=== PATIENT | male | born 1990 | race Caucasian/White ===

== ENCOUNTER 2024-06-14 18:55 | Observation (INO) | payer OTHER, SELFPAY ==
[2024-06-14 19:02] VITALS: BP 160/90; PULSE 108; TEMP 37.4; O2SAT 95; BMI 43.7
--- NOTE | 2024-06-14 19:09 | US_ITS ---
[facility] [place] [id number] Patient Name: ROSE ACOSTA MRN: [id number] date: 1990 Sex: M Assigned Patient Location: ER Current Patient Location: ED.MAIN Accession/Order Number: [id number] Exam Date: 06/14/2024 19:40 Report Date: 06/14/2024 22:15 At the request of: JAY COMER Procedure: US venous doppler LE BI US venous doppler LE BI, 06/14/2024 6:40 PM CDT: History: DVT. Comparison: None. Technique: Grayscale, color Doppler, and spectral Doppler imaging of the deep veins of the bilateral lower extremities were performed. Findings: The deep veins of the bilateral lower extremities demonstrate normal compression, Spectral flow, and color Doppler signal. There is no evidence of deep vein thrombosis. US/US venous doppler LE BI Impression: No evidence of deep vein thrombosis within either lower extremity. Electronically authenticated by: KWASI GLASGOW Date: 06/14/2024 22:15
--- NOTE | 2024-06-14 20:51 | ED_ITS ---
HPI - Extremity Problem General Chief complaint: Extremity Problem, Nontraumatic Stated complaint: Lower Extremity Swelling Time Seen by Provider: 06/14/24 19:58 Source: patient Mode of arrival: walk-in Limitations: no limitations History of Present Illness HPI Narrative: This 33-year-old male presents for evaluation of bilateral lower extremity swelling for the past month with redness mostly in the left lower extremity for the past 8 days. He was seen at urgent care and put on Keflex for what was thought to be cellulitis. The patient has pink skin in general he states that is his usual skin color. He thought a month ago that he had a heat rash. He had recently returned to work and wears boots and heavy pants and thought that he was chafing from the pants and the sweat causing the heat rash. The heat rash has not resolved and has become worse on the anterior aspect of the left lower leg and he recently started having swelling. He also has a small healing laceration to the medial posterior lower leg. He is morbidly obese. He denies any chest pain or shortness of breath. He denies a history of diabetes but states there is a family history of diabetes. He completed a round of Keflex without clinical improvement in his symptoms. Related Data Home Medications ?Medication ?Instructions ?Recorded ?Confirmed No Known Home Medications 06/14/24 06/14/24 Allergies Allergy/AdvReac Type Severity Reaction Status Date / Time No Known Drug Allergies Allergy Verified 06/14/24 19:07 Review of Systems ROS Status of ROS 10 or more systems reviewed and unremark able except as noted in history and below [facility] Medical History (Updated 06/15/24 @ 04:43 by Yana Forde MD) Cellulitis and abscess of left leg ?L03.116 - Cellulitis of left lower limb (ICD-10) ?L02.416 - Cutaneous abscess of left lower limb (ICD-10) COVID ?U07.1 - COVID-19 (ICD-10) Social History Gender Identity: male Exam Narrative Exam Narrative: Vital signs and Nursing Notes reviewed: Pt has a low grade fever at 99.4, he is tachycardic with pulse of 108bpm and BP is elevated at 160/90, he is not hypoxic with pulse ox of 95% on RA General: Awake, alert, oriented, no acute distress, lying comfortably on the stretcher HEENT: Normocephalic atraumatic, mucous membranes are moist and pink, eyes are clear, normal conjunctiva, vision is grossly intact, posterior pharynx is normal in appearance. Chest: Lungs are clear to auscultation with good air entry, there is no wheezing rhonchi or rales appreciated no accessory muscle use, patient is speaking in complete sentences-no chest wall tenderness to palpation CVS: Regular rate and rhythm S1-S2, no murmurs rubs or gallops, pulses are brisk and equal bilaterally Extremities: Moving all extremities, no lower extremity tenderness or swelling noted, negative Homans' sign, pulses are brisk and equal bilaterally Skin: Erythematous appearance of all skin surfaces. LLE is increasingly erythematous with an area of tender erythema, almost petechial on the entire lower left leg including the anterior and posterior leg, there is a small healing laceration on the medial aspect of the left lower leg, no drainage appreciated there is 2+ pitting edema to both lower extremities, L>R. Pulses are brisk and equal bilaterally Neuro: No focal deficits Constitutional Vital Signs, click to edit/add: Last Vital Signs Temp 97.6 F 06/15/24 03:19 Pulse 87 06/15/24 03:19 Resp 18 06/15/24 03:19 BP 111/69 06/15/24 03:19 Pulse Ox 94 L 06/15/24 03:19 O2 Del Method Room Air 06/15/24 03:19 Course Vital Signs Vital signs: Vital Signs Temperature 99.4 F 06/14/24 19:02 Pulse Rate 108 H 06/14/24 19:02 Respiratory Rate 18 06/14/24 19:02 Blood Pressure 160/90 H 06/14/24 19:02 Pulse Oximetry 95 06/14/24 19:02 Oxygen Delivery Method Room Air 06/14/24 19:02 Temperature 97.6 F 06/15/24 03:19 Pulse Rate 87 06/15/24 03:19 Respiratory Rate 18 06/15/24 03:19 Blood Pressure 111/69 06/15/24 03:19 Pulse Oximetry 94 L 06/15/24 03:19 Oxygen Delivery Method Room Air 06/15/24 03:19 MDM - Extremity (Nontraumatic) MDM Narrative Medical decision making narrative: The [address] [address] Ultrasound Report Signed Patient: ROSE ACOSTA MR#: [id number] : 1990 Acct:[id number] Age/Sex: 33 / M ADM Date: 06/14/24 Loc: ER Attending Dr: Ordering Physician: Jay Comer Date of Service: 06/14/24 Procedure(s): US venous doppler LE BI Accession Number(s): [id number] cc: Jay Comer; Physician,Non-Staff M.D.~ [facility] [place] [id number] Patient Name: ROSE ACOSTA MRN: [id number] date: 1990 Sex: M Assigned Patient Location: ER Current Patient Location: ED.MAIN Accession/Order Number: [id number] Exam Date: 06/14/2024 19:40 Report Date: 06/14/2024 22:15 At the request of: JAY COMER Procedure: US venous doppler LE BI US venous doppler LE BI, 06/14/2024 6:40 PM CDT: History: DVT. Comparison: None. Technique: Grayscale, color Doppler, and spectral Doppler imaging of the deep veins of the bilateral lower extremities were performed. Findings: The deep veins of the bilateral lower extremities demonstrate normal compression, Spectral flow, and color Doppler signal. There is no evidence of deep vein thrombosis. US/US venous doppler LE BI Impression: No evidence of deep vein thrombosis within either lower extremity. Electronically authenticated by: KWASI GLASGOW Date: 06/14/2024 22:15 This 33-year-old male who is not diabetic but is morbidly obese presents for evaluation of redness and swelling to both lower extremities, left greater than right. The patient states that he sweats a lot at work and his legs chafe. He was treated for cellulitis with Keflex but the symptoms did not resolve and he developed increasing swelling of the legs. He has not had a fever. He is not diabetic. He has circumferential erythema of the left lower extremity with 2+ pitting edema. He has edema with less redness of the right lower extremity. Bilateral duplex ultrasounds were negative for DVT. He has a normal white count and hemoglobin. Electrolytes are normal. BUN and creatinine are normal. He does have markedly elevated inflammatory markers including CRP and sed rate. He was medicated in the emergency department with IV Unasyn. In light of the fact that this is an outpatient failure for cellulitis he will be admitted. The case was discussed with the hospitalist and the patient is accepted for admissi on. Lab Data Labs: Lab Results 06/14/24 Range/Units 21:10 WBC 7.8 (4.0-11.0) 10^3/uL RBC 5.14 (4.70-6.10) 10^6/uL Hgb 15.5 (14.0-18.0) g/dL Hct 46.5 (42.0-54.0) % MCV 90.5 (80.0-94.0) fL MCH 30.2 (25.9-34.0) pg MCHC 33.3 (29.9-35.2) g/dL RDW 12.7 (11.0-15.0) % Plt Count 344 (150-450) 10^3/uL MPV 9.6 (9.5-13.5) fL Neut % (Auto) 57.0 (43.0-75.0) % Lymph % (Auto) 29.7 (20.5-60.0) % Geary % (Auto) 8.1 (1.7-12.0) % Eos % (Auto) 4.2 (0.9-7.0) % Baso % (Auto) 0.5 (0.2-2.0) % Neut # (Auto) 4.4 (1.4-6.5) 10^3/uL Lymph # (Auto) 2.3 (1.2-3.8) 10^3/uL Geary # (Auto) 0.6 (0.3-0.8) 10^3/uL Eos # (Auto) 0.3 (0.0-0.7) 10^3/uL Baso # (Auto) 0.0 (0.0-0.1) 10^3/uL Abs Immat Gran (auto) 0.04 H (0.00-0.03) 10^3/uL Imm/Tot Granulo (auto) 0.5 (0.0-0.5) % ESR 68 H (<=15) mm/hr Sodium 139 (136-145) mmol/L Potassium 3.6 (3.5-5.1) mmol/L Chloride 101 (98-107) mmol/L Carbon Dioxide 30.3 (21.0-32.0) mmol/L Anion Gap 11.3 BUN 16.0 (7.0-18.0) mg/dL Creatinine 1.14 (0.70-1.30) mg/dL Est GFR ( Amer) >60 (>=60) Est GFR (Non-Af Amer) >60 (>=60) BUN/Creatinine Ratio 14.0 Glucose 106 (74-106) mg/dL Lactate 1.3 (0.4-2.0) mmol/L Calcium 9.1 (8.5-10.1) mg/dL C-Reactive Protein 0.95 H (<=0.50) mg/dL Discharge Plan Discharge Chief Complaint: Extremity Problem, Nontraumatic Clinical Impression: Cellulitis of left lower leg Patient Disposition: Admitted as Observation Time of Disposition Decision: 00:05 Condition: Good Discharge Date/Time: 06/15/24 00:05
[2024-06-14] MEDS: AMPICILLIN SODIUM/SULBACTAM NA 3 GM in 0.9 % SODIUM CHLORIDE 100 ML IV (21:16)
[2024-06-14 21:38] LABS: Basophils Percent Auto 0.5 % (0.2-2.0); Eosinophils Absolute Auto 0.3 10^3/uL (0.0-0.7); Eosinophils Percent Auto 4.2 % (0.9-7.0); Hematocrit 46.5 % (42.0-54.0); Hemoglobin 15.5 g/dL (14.0-18.0); Immature Granulocytes Abs Auto 0.04 10^3/uL (0.00-0.03); Immature Granulocytes Pct Auto 0.5 % (0.0-0.5); Lymphocytes Absolute Auto 2.3 10^3/uL (1.2-3.8); Lymphocytes Percent Auto 29.7 % (20.5-60.0); Mean Corpuscular HGB Conc 33.3 g/dL (29.9-35.2); Mean Corpuscular Hemoglobin 30.2 pg (25.9-34.0); Mean Corpuscular Volume 90.5 fL (80.0-94.0); Mean Platelet Volume 9.6 fL (9.5-13.5); Monocytes Absolute Auto 0.6 10^3/uL (0.3-0.8); Monocytes Percent Auto 8.1 % (1.7-12.0); Neutrophils Absolute Auto 4.4 10^3/uL (1.4-6.5); Platelet Count 344 10^3/uL (150-450); Red Blood Count 5.14 10^6/uL (4.70-6.10); Red Cell Distribution Width 12.7 % (11.0-15.0); White Blood Count 7.8 10^3/uL (4.0-11.0)
[2024-06-14 21:45] LABS: Erythrocyte Sedimentation Rate 68 mm/hr (<=15)
[2024-06-14 21:52] LABS: Anion Gap 11.3; C Reactive Protein 0.95 mg/dL (<=0.50); Calcium 9.1 mg/dL (8.5-10.1); Carbon Dioxide 30.3 mmol/L (21.0-32.0); Chloride 101 mmol/L (98-107); Estimated GFR (African America >60 (>=60); Estimated GFR (Non-African Ame >60 (>=60); Glucose 106 mg/dL (74-106); Potassium 3.6 mmol/L (3.5-5.1); Sodium 139 mmol/L (136-145)
[2024-06-14 21:59] LABS: Lactate/Lactic Acid 1.3 mmol/L (0.4-2.0)
[2024-06-14 22:48] VITALS: BP 127/81; PULSE 79; TEMP 36.8; O2SAT 92
[2024-06-14] MEDS: FUROSEMIDE 20 MG/2 ML VIAL IVP (23:01)
[2024-06-14 23:04] VITALS: BP 153/99; PULSE 73; O2SAT 97
[2024-06-15 00:23] VITALS: BP 127/81; PULSE 75; TEMP 36.7; O2SAT 92; BMI 43.8
[2024-06-15] MEDS: AMPICILLIN SODIUM/SULBACTAM NA 3 GM in 0.9 % SODIUM CHLORIDE 100 ML IV ×2 (03:14→09:24)
[2024-06-15 03:19] VITALS: BP 111/69; PULSE 87; TEMP 36.4; O2SAT 94
[2024-06-15 07:18] LABS: Basophils Percent Auto 0.6 % (0.2-2.0); Eosinophils Absolute Auto 0.3 10^3/uL (0.0-0.7); Eosinophils Percent Auto 4.5 % (0.9-7.0); Hemoglobin 15.8 g/dL (14.0-18.0); Immature Granulocytes Abs Auto 0.03 10^3/uL (0.00-0.03); Immature Granulocytes Pct Auto 0.5 % (0.0-0.5); Lymphocytes Absolute Auto 1.7 10^3/uL (1.2-3.8); Lymphocytes Percent Auto 25.9 % (20.5-60.0); Mean Corpuscular HGB Conc 32.2 g/dL (29.9-35.2); Mean Corpuscular Hemoglobin 29.9 pg (25.9-34.0); Mean Corpuscular Volume 92.6 fL (80.0-94.0); Mean Platelet Volume 9.1 fL (9.5-13.5); Monocytes Absolute Auto 0.7 10^3/uL (0.3-0.8); Neutrophils Absolute Auto 3.8 10^3/uL (1.4-6.5); Neutrophils Percent Auto 58.5 % (43.0-75.0); Platelet Count 327 10^3/uL (150-450); Red Blood Count 5.29 10^6/uL (4.70-6.10); Red Cell Distribution Width 12.8 % (11.0-15.0); White Blood Count 6.5 10^3/uL (4.0-11.0)
[2024-06-15 07:36] LABS: Alanine Aminotransferase 63 U/L (16-63); Albumin Level 3.9 g/dL (3.4-5.0); Alkaline Phosphatase 84 U/L (46-116); Anion Gap 11.1; Aspartate Amino Transferase 34 U/L (15-37); BUN Creatinine Ratio 12.7; Bilirubin Total 1.2 mg/dL (0.2-1.0); Calcium 9.3 mg/dL (8.5-10.1); Carbon Dioxide 28.8 mmol/L (21.0-32.0); Chloride 103 mmol/L (98-107); Estimated GFR (African America >60 (>=60); Estimated GFR (Non-African Ame >60 (>=60); Globulin 3.9 g/dL; Glucose 123 mg/dL (74-106); Potassium 3.9 mmol/L (3.5-5.1); Sodium 139 mmol/L (136-145); Total Protein 7.8 g/dL (6.4-8.2)
[2024-06-15 07:57] VITALS: BP 153/83; PULSE 83; TEMP 36.7; O2SAT 92
[2024-06-15] MEDS: ENOXAPARIN SODIUM 40 MG/0.4 ML SYRINGE SUBQ (09:24)
[2024-06-15] MEDS: VANCOMYCIN HCL 2,000 MG in 0.9 % SODIUM CHLORIDE 500 ML 250 MG IV (10:03)
[2024-06-15 10:25] VITALS: O2SAT 94
--- NOTE | 2024-06-15 10:42 | P.HP_ITS ---
HPI H&P: HPI History of Present Illness Chief complaint: Lower Extremity Swelling Narrative: HPI and Hospital course: 33-year-old male with no significant past medical history presented to ER with left lower extremity pain, erythema, swelling. He had just finished oral antibiotic for bilateral cellulitis and was prescribed Keflex by urgent care. He reports that his symptoms had improved and he went back to work on but then he noted that his left leg started to get painful, swelled up so he decided to come to ED for further evaluation. His workup was consistent with left lower extremity cellulitis for which she was started on IV Unasyn overnight. Patient was seen earlier today and was feeling much better. His erythema, swelling and pain has significantly improved. Patient is medically stable for discharge on oral Bactrim. Patient was noted to have elevated blood pressure while in the hospital and was recommended to have outpatient follow-up to ensure he does not have high blood pressure. Opioid HPI Opioid Management Most Recent Pain and Opioid Data: Last Pain Scale 0 06/15/24 09:11 Last Pain Assessment 06/15/24 10:06 Last ORT Total Score 0 06/15/24 00:23 Last ORT Risk Category Low Risk 06/15/24 00:23 Review of Systems ROS Status of ROS 10 or more systems reviewed and unremark able except as noted in history and below PFSH [facility] Medical History (Updated 06/15/24 @ 10:46 by Shaikh David MD) Cellulitis and abscess of left leg ?L03.116 - Cellulitis of left lower limb (ICD-10) ?L02.416 - Cutaneous abscess of left lower limb (ICD-10) COVID ?U07.1 - COVID-19 (ICD-10) Family History (Updated 06/15/24 @ 10:45 by Shaikh David MD) Mother Family history of hypertension Brother Family history of hypertension Social History (Updated 06/15/24 @ 10:45 by Shaikh David MD) Within the past year, how often did you have a drink containing alcohol: monthly or less Within the past year, how many standard drinks containing alcohol did you have on a typical day: 1 or 2 Within the past year, how often did you have six or more drinks on one occasion: never Total score: 0 Score interpretation: A score less than 4 is consistent with normal alcohol consumption. Smoking status: Never smoker Non-prescribed substance use: denies use Gender Identity: male Meds Home Medications and Allergies Home Medications ?Medication ?Instructions ?Recorded ?Confirmed ?Type No Known Home Medications 06/14/24 06/14/24 History Allergies Allergy/AdvReac Type Severity Reaction Status Date / Time No Known Drug Allergies Allergy Verified 06/14/24 19:07 Exam Constitutional Vital Signs, click to edit/add: Last Vital Signs Temp 98.0 F 06/15/24 07:57 Pulse 83 06/15/24 07:57 Resp 16 06/15/24 07:57 BP 153/83 H 06/15/24 07:57 Pulse Ox 94 L 06/15/24 10:25 O2 Del Method Room Air 06/15/24 10:25 Documenting provider has reviewed patient's vital signs: yes Common normals: no apparent distress and oriented x3 General appearance: cooperative Respiratory Common normals: normal respiratory effort and clear to auscultation bilaterally Effort & inspection: able to speak in complete sentences Auscultation: clear to auscultation bilaterally Cardio Common normals: regular rate, S1 normal heart sound and S2 normal heart sound Rate: regular rate Heart sounds: S1 normal and S2 normal GI Common normals: Normal to inspection, nondistended, normoactive bowel sounds present, soft to palpation, non-tender and no hepatosplenomegaly Palpation: soft and no hepatosplenomegaly Extremity Other: Left lower extremity-erythema/mild edema noted. No pain on palpation. According to the patient, it has significantly improved overnight Neuro Common normals: oriented x3, moves all extremities and no focal motor deficits Psych Common normals: mental status grossly normal, denies hallucinations, denies homicidal ideation and denies suicidal ideation Results Labs Labs: Short CBC 06/14/24 06/15/24 Range/Units 21:10 07:06 WBC 7.8 6.5 (4.0-11.0) 10^3/uL Hgb 15.5 15.8 (14.0-18.0) g/dL Hct 46.5 49.0 (42.0-54.0) % Plt Count 344 327 (150-450) 10^3/uL BMP 06/14/24 06/15/24 21:10 07:06 Sodium 139 139 Potassium 3.6 3.9 Chloride 101 103 Carbon Dioxide 30.3 28.8 BUN 16.0 13.0 Creatinine 1.14 1.02 Glucose 106 123 H Calcium 9.1 9.3 Liver Function 06/15/24 Range/Units 07:06 Total Bilirubin 1.2 H (0.2-1.0) mg/dL AST 34 (15-37) U/L ALT 63 (16-63) U/L Alkaline Phosphatase 84 (46-116) U/L Albumin 3.9 (3.4-5.0) g/dL Assessment and Plan Assessment and Plan (1) Cellulitis of left lower leg: Assessment and Plan: Left lower leg cellulitis improved with overnight IV antibiotic. Stable for discharge on oral Bactrim. Patient will need follow-up with PCP in 1 to 2 weeks (2) Elevated blood pressure reading without diagnosis of hypertension: Assessment and Plan: No prior or formal diagnosis of blood pressure in the past. Intermittently elevated blood pressure but this could be because of pain and being in the hospital. He will need outpatient follow-up and blood pressure monitoring. (3) Obesity: Assessment and Plan: Morbidly obese with BMI of 43. Recommend lifestyle measures including caloric restriction, increase physical activity. Qualifiers: Obesity type: due to excess calories Obesity classification: adult class 3 (BMI >= 40) Serious obesity comorbidity presence: without serious comorbidity Body mass index: BMI 40.0-44.9 Qualified Code(s): E66.01 - Morbid (severe) obesity due to excess calories; Z68.41 - Body mass index [BMI] 40.0- 44.9, adult Plan Stable for discharge on oral antibiotic. Follow-up with PCP in 1 to 2 weeks. Patient instructed to return to ER if worsening pain/erythema and swelling.
--- NOTE | 2024-06-15 10:59 | CM.NOTE ---
Rounds made with Dr. Hernandez. Dr Hernandez discussed diagnosis and treatment plan. Juan verbalized understanding. Plan is for discharge today on po antibiotic.
[2024-06-15 11:18] LABS: Estimated Average Glucose 117 mg/dL; Glycohemoglobin A1C 5.7 % (4.5-6.2)
[2024-06-15 11:43] VITALS: BP 130/73; PULSE 72; TEMP 36.5; O2SAT 94
--- NOTE | 2024-06-18 11:47 | CM.DCFOLLOWU ---
Person spoke with: patient How are you feeling? well How is your pain? none, just itching from the heeling process Did you understand your discharge instructions? yes Do you have any questions about your discharge instructions? no Were you given any prescriptions at discharge? yes Were you able to get your prescriptions filled? yes Do you understand how to take your medications as ordered? yes Do you have any questions about your follow up appointment and do you plan to keep your follow up appointment? no questions, follow up reviewed with patient Is there anything else that you would like to discuss? no Questions/Comments/Concerns/Other: none
== END 2024-06-15 12:34 | disposition home or self-care (01) ==
LOC: ER 21:27 → MS 06-15 00:08
PROVIDERS: Registered Nurse; Admitting Provider Internal Medicine; Emergency Provider Emergency Medicine; Visit Provider Internal Medicine
DX: L03.116 Cellulitis of left lower limb (principal); E66.01 Morbid (severe) obesity due to excess calories; R03.0 Elevated blood-pressure reading, without diagnosis of hypertension; Z68.41 Body mass index [BMI] 40.0-44.9, adult
CPT/HCPCS: 36415; 80048; 80053; 83036; 83605; 85025; 85652; 86140; 93970; 94761; 96365; 96366; 96367; 96372; 96375; 99285; G0378; J0295; J1650; J1940; J3370